=== PATIENT | female | born 1980 ===

== ENCOUNTER 2018-04-25 06:32 | Day surgery (SDC) | payer SELFPAY ==
[2018-04-25] MEDS ORDERED: Povidone Iodine Ophthalmic 5% Soln ONE (07:44)
[2018-04-25] MEDS ORDERED: Tetracaine 0.5% Ophth (OR ONLY) ONE (07:44)
[2018-04-25] MEDS ORDERED: Tobramycin/Dexamethasone OPHT OINT ONE (07:45)
[2018-04-25] MEDS ORDERED: Lidocaine 2% Jelly (Uro-Jet) ONE (07:49)
[2018-04-25] MEDS ORDERED: Lidocaine/Epinephrine 1% 1:100000 10 ML IJ ONE (07:49)
[2018-04-25] MEDS ORDERED: Tobramycin/Dexamethasone (Tobradex) Opth Sol (2.5 ml) ONE (10:04)
[2018-04-25 11:37] VITALS: RESP 18
[2018-04-25 11:41] VITALS: BP 123/75; PULSE 68; O2SAT 99
[2018-04-25 11:48] VITALS: TEMP 97.7
--- NOTE | 2018-04-26 06:10 | OP ---
PROCEDURE DATE: 04/25/2018 PREOPERATIVE DIAGNOSES: 1. PTERYGIUM, LEFT EYE. 2. CORNEAL OPACIFICATION, LEFT EYE. POSTOPERATIVE DIAGNOSES: 1. PTERYGIUM, LEFT EYE. 2. CORNEAL OPACIFICATION, LEFT EYE. SURGEON: Jeff Bhatia MD OPERATIVE PROCEDURE: EXCISION OF PTERYGIUM WITH CONJUNCTIVAL AUTOGRAFT AND LAMELLAR KERATECTOMY, LEFT EYE. ANESTHESIA TYPE: Local standby. COMPLICATIONS: None. PROCEDURE: The patient was brought to the operating room and was prepped and draped in the usual sterile fashion. A lid speculum was placed into the eye and topical Tetracaine was used. One percent lidocaine with epinephrine was injected subconjunctivally into the body of the pterygium. A Misael scissor was used to create a small opening at the neck of the pterygium at the limbus, and then a tunnel was created beneath the pterygium. A #4-0 silk suture was placed through this tunnel and tied securely. An additional #4-0 silk suture was placed through the tunnel and in a sling fashion, was used to excise the head of the pterygium from the corneal surface. A Misael scissor was then used to excise the scleral extension of the pterygium for approximately 3-4 millimeters. Tenon's membrane was removed beneath the dissected bed and light cautery was used for hemostasis. A #57 Damascus blade was then used to perform a lamellar keratectomy removing all of the opacified corneal tissue. A meredith kashif was used to tamazight this surface. One percent lidocaine was used subconjunctivally in the superior aspect of the eye, and a conjunctival autograft was harvested and rotated in an anatomical fashion over the recipient bed. The graft was noted to be of excellent size for the bed, and #8-0 Vicryl sutures were used in an interrupted fashion to suture the graft in place. At the limbus both above and below, the graft was tacked down to episclera. Jeff Bhatia MD
== END 2018-04-25 10:18 | disposition home or self-care (01) ==
LOC: C.SDS 06:32
PROVIDERS: ATTEND Ophthalmology
DX: H11.052 Peripheral pterygium, progressive, left eye (principal); H17.9 Unspecified corneal scar and opacity

== ENCOUNTER 2018-08-17 10:07 | Outpatient (CLI) | payer SELFPAY | END 2018-08-17 10:08 | disposition home or self-care (01) | LOC: C.USIC 10:07 ==